=== PATIENT | male | born 2000 | race Caucasian/White ===

== ENCOUNTER 2023-04-20 07:30 | Outpatient (RCR) | payer OTHER, SELFPAY | END 2023-07-12 11:16 | disposition home or self-care (01) | PROVIDERS: PCP Family Medicine; Visit Provider Family Medicine | DX: M53.3 Sacrococcygeal disorders, not elsewhere classified (principal); G57.00 Lesion of sciatic nerve, unspecified lower limb; M51.26 Other intervertebral disc displacement, lumbar region; M62.89 Other specified disorders of muscle; M99.03 Segmental and somatic dysfunction of lumbar region; G64 Other disorders of peripheral nervous system; Z51.89 Encounter for other specified aftercare | CPT/HCPCS: 97012; 97110; 97140; 97161; 97164 ==

== ENCOUNTER 2023-05-08 07:02 | Outpatient (CLI) | payer OTHER, SELFPAY ==
--- NOTE | 2023-05-08 07:15 | MR_ITS ---
[facility] [address] [facility] [address] Phone:?[phone] Fax:?[phone] Referring Physician Information: Diane Queen M.D. [address] [facility] [address] Phone:?[phone] Fax:?[phone] Patient:?Saleem Martinez D.O.B:?2000 Sex:?Male Phone:?[phone] [facility] MRN:?[id number] Exam Date:?05/08/2023 EXAM:?MR LUMBAR SPINE WITHOUT CONTRAST CLINICAL INFORMATION: Pain rule out disc herniation. COMPARISON: 02/20/2023.?SEDATION:?None. TECHNICAL INFORMATION: Imaging was performed at [facility]. Sagittal and axial T1/ FSE T2, sagittal STIR and coronal T1 images were obtained through the lumbar spine. INTERPRETATION: S1-S2: Rudimentary disc space without stenosis or impingement. Findings consistent with mild left lumbarization of S1. L5-S1:?Moderate degeneration, a central to left paracentral caudally extruded disc herniation measures 9.5 mm AP and extrudes caudally for 7 mm. This indents the dural sac and encroaches upon the left S1 root. Mild central canal narrowing and patent foramina. Unremarkable facet joints. L4-5: Mild degeneration, a midline 5.8 mm disc herniation indents the dural sac without impingement or stenosis. Patent foramina and unremarkable facet joints. [id number]: Normal disc height and annular margins. No spinal stenosis or neural impingement. Osseous Structures: Fat suppressed images are negative for acute or subacute fractures. Paraspinous Soft Tissues: No mass lesions. Conus, Cord and Cauda Equina: Normal position conus and no evidence of intradural mass or arachnoiditis. CONCLUSION: 1. A moderate-sized caudally extruded central/left paracentral L5-S1 disc herniation indents the dural sac with mild left S1 root encroachment and central canal narrowing. 2. Central L4-5 disc herniation with dural sac indentation without stenosis or impingement. 3. Comparison to outside images from 02/20/2023 shows decreased mass effect upon the left S1 root with partial resorption of left posterolateral L5-S1 herniation but persistent central/left paracentral extrusion. No interval change at L4-5. Electronically signed on 05/09/2023 11:21:00 AM by Ramírez Monroe M.D.
== END 2023-05-08 07:03 | disposition home or self-care (01) ==
PROVIDERS: PCP Family Medicine; Visit Provider Student in an Organized Health Care Education/Training Program
DX: M51.26 Other intervertebral disc displacement, lumbar region (principal); M51.27 Other intervertebral disc displacement, lumbosacral region
CPT/HCPCS: 72148

== ENCOUNTER 2024-01-11 12:56 | Emergency (ER) | payer BC, SELFPAY ==
[2024-01-11 13:40] VITALS: BP 134/81; PULSE 98; RESP 18; TEMP 37; O2SAT 98; BMI 28.1
--- NOTE | 2024-01-11 14:19 | ED.ABDPAIN ---
HPI - Abdominal Pain General Time Seen by Provider: 14:19 Date Seen: 01/11/24 Chief Complaint: Abdominal Pain Stated Complaint: abdominal pain Time Seen by Provider: 01/11/24 14:14 Source: patient, RN notes reviewed and old records reviewed Mode of arrival: ambulatory Limitations: no limitations History of Present Illness HPI narrative: 23-year-old male who presents with abdominal pain which is been going on for a little over week. Pain is in the mid abdomen and became suddenly had comes in waves, generally achy. Did vomit at the beginning of this but has not vomited since, normal bowel movements, no urinary symptoms. Has not taken anything for this. Pain seems to be little bit worse when he eats breakfast and lunch but not as much when he eats dinner. Denies any injury, did have back surgery but no other surgeries. Related Data Home Medications ?Medication ?Instructions ?Recorded ?Confirmed gabapentin 300 mg capsule mg PO TID 01/09/24 01/09/24 methocarbamol 750 mg tablet 750 mg PO Q6H PRN 01/09/24 01/11/24 Allergies Allergy/AdvReac Type Severity Reaction Status Date / Time No Known Drug Allergies Allergy Verified 01/11/24 15:02 PFSH PFS Social History Smoking Status: Never smoker Do you use any of these nicotine containing products: None How often do you have a drink containing alcohol: monthly or less AUDIT-C Alcohol total score: 1 Non-prescribed substance use: denies use Exam Narrative: Exam Narrative: General: Well-developed and well-nourished, no acute distress Head: Atraumatic and normocephalic Eyes: Pupils are equal reactive, extraocular motions intact, conjunctiva clear ENT: External nose and ears are normal, posterior pharynx without erythema or exudate Neck: No midline cervical tenderness, full spontaneous range of motion the neck, trachea midline, no adenopathy Heart: Regular rate and rhythm no murmurs or thrills Lungs: Clear to auscultation bilaterally without wheezes or crackles Abdomen: Soft, nontender, nondistended with active bowel sounds Musculoskeletal: No tenderness, deformity, or edema Neurologic: Awake, alert, and oriented x3, no gross focal neurologic deficits, cranial nerves intact as tested Psych: Mood and affect are appropriate Skin: No rashes Const: Vital Signs, click to edit/add: Vital Signs - 24 hr 01/11/24 13:40 01/11/24 15:27 Temperature 98.6 F 97.5 F L Pulse Rate [Left P ulse Oximeter] 98 59 L Respiratory Rate 18 18 Blood Pressure [Le ft Upper Arm] 134/81 119/63 Pulse Oximetry 98 98 Oxygen Delivery Me thod Room Air Room Air Course Course ED Course: Patient seen examined, reviewed prior gym care visit from January 08 when patient was seen for this same complaint, that time normal CBC in what sounds like a fairly benign exam, felt to have mesenteric adenitis. Patient returns today with continued pain, described as aching and sometimes sharp. Patient is vitally stable on initial exam with minimal tenderness. Discussed possible etiology of patient's symptoms today, labs ordered along with CT scan of the abdomen pelvis although given exam, acute appendicitis, cholecystitis, pancreatitis unlikely. Reevaluation(s) Time of Reevaluation #1: 15:03 Reevaluation #1: Labs independently interpreted by me with normal CBC. CT scan of the abdomen pelvis independently interpreted by me does not demonstrate acute findings. Time of Reevaluation #2: 15:38 Reevaluation #2: Labs independently interpreted by me with normal patent panel other than slightly low alkaline phosphatase, lipase normal. No definite etiology for patient's abdominal pain found today. Stable for discharge with outpatient follow-up. Vital Signs Vital signs: Initial Vital Signs Temperature 98.6 F 01/11/24 13:40 Temperature Source Temporal Artery Scan 01/11/24 13:40 Pulse Rate 98 01/11/24 13:40 Pulse Rhythm Regular 01/11/24 13:40 Pulse Strength 3+ Normal 01/11/24 13:40 Respiratory Rate 18 01/11/24 13:40 Blood Pressure 134/81 01/11/24 13:40 Blood Pressure Mean 98 01/11/24 13:40 Blood Pressure Position Sitting 01/11/24 13:40 Pulse Oximetry 98 01/11/24 13:40 Oxygen Delivery Method Room Air 01/11/24 13:40 Vital Signs Temperature 98.6 F 01/11/24 13:40 Pulse Rate 98 01/11/24 13:40 Respiratory Rate 18 01/11/24 13:40 Blood Pressure 134/81 01/11/24 13:40 Pulse Oximetry 98 01/11/24 13:40 Oxygen Delivery Method Room Air 01/11/24 13:40 Temperature 97.5 F L 01/11/24 15:27 Pulse Rate 59 L 01/11/24 15:27 Respiratory Rate 18 01/11/24 15:27 Blood Pressure 119/63 01/11/24 15:27 Pulse Oximetry 98 01/11/24 15:27 Oxygen Delivery Method Room Air 01/11/24 15:27 MDM - Abdominal Pain Lab Data Labs: Lab Results 01/11/24 Range/Units 14:42 WBC 7.37 (4.50-11.00) K/uL RBC 5.17 (4.30-5.90) m/uL Hgb 15.8 (13.5-17.5) gm/dL Hct 45.2 (37.0-53.0) % MCV 87 (80-100) fL MCH 31 (26-34) pg MCHC 35 (32-36) gm/dL RDW Coeff of Jo 11.6 (11.5-15.5) % Plt Count 211 (140-440) K/uL Neut % (Auto) 45.7 (42.0-72.0) % Lymph % (Auto) 35.7 (20-44) % [place] % (Auto) 9.2 (0.0-11.0) % Eos % (Auto) 9.0 H (0.0-7.0) % Baso % (Auto) 0.3 (0.0-3.0) % Neut # (Auto) 3.37 (1.7-7.0) K/uL Lymph # (Auto) 2.63 (0.90-2.90) K/uL [place] # (Auto) 0.70 (0.00-0.90) K/UL Eos # (Auto) 0.70 H (0.00-0.50) K/uL Baso # (Auto) 0.02 (0.00-0.30) K/uL Abs Immat Gran (auto) 0.01 (0.00-0.30) K/uL Imm/Tot Granulo (auto) 0.1 % Sodium 138 (135-149) mmol/L Potassium 3.9 (3.6-5.1) mmol/L Chloride 97 (96-114) mmol/L Carbon Dioxide 30 (20-32) mmol/L Anion Gap 11 (7-15) mEq/L BUN 14 (5-24) mg/dL Creatinine 0.8 (0.5-1.5) mg/dL Estimated Creat Clear 146.06 Estimated GFR 129 ml/min Glucose 90 (60-115) mg/dL Calcium 9.6 (8.4-10.6) mg/dL Total Bilirubin 0.3 (0.1-1.5) mg/dL Direct Bilirubin 0.1 (0.0-0.5) mg/dL AST 24 (12-35) U/L ALT 26 (4-50) U/L Alkaline Phosphatase 39 L (40-150) U/L Total Protein 7.7 (6.0-8.3) g/dL Albumin 5.1 H (3.3-5.0) g/dL Lipase 52 (23-300) U/L Discharge Plan Discharge Clinical Impression: Abdominal pain, periumbilic Patient Disposition: Home, Self-Care Condition: Stable Instructions: Abdominal Pain (ED) Additional Instructions: No definite cause for your abdominal pain is found today. No evidence for pancreatitis, gallbladder problems, or appendicitis. Take Tylenol and ibuprofen as needed for pain, follow-up with primary care in 7-10 days for recheck. Activity Level: Activity as Tolerated Discharge Diet: Regular Prescriptions: No Action methocarbamol 750 mg tablet 750 mg PO Q6H PRN gabapentin 300 mg capsule PO TID Follow Up/Referrals: Sherry Myers MD [Staff Physician] - Stand Alone Forms: [employer] Info Instructions
--- NOTE | 2024-01-11 14:32 | CRLHL7_ITS ---
For Patients: As a result of the Century Cures Act, medical imaging exams and procedure reports are released immediately into your electronic medical record. You may view this report before your referring provider. If you have questions, please contact your health care provider. INDICATION: Periumbilical abdominal pain COMPARISON: None. TECHNIQUE: CT of the abdomen and pelvis with intravenous contrast (93 milliliters Isovue 370). FINDINGS: Lung bases: No pleural effusion. Liver: Smooth hepatic contour. No suspicious hepatic lesions are identified. Gallbladder and biliary tree: Unremarkable CT appearance. Spleen: No splenomegaly. Pancreas: Normal. Adrenal glands: Normal. Kidneys and ureters: No hydroureteronephrosis. No suspicious renal lesions are identified. Bladder: Unremarkable CT appearance. Visualized reproductive organs: Unremarkable CT appearance. Gastrointestinal tract: No focal abnormally dilated loops of bowel. Peritoneal cavity: No free fluid or free air. Lymph nodes: No enlarged abdominal or pelvic lymph nodes by CT size criteria. Vessels: No abdominal aortic aneurysm. Circumaortic left renal vein. Abdominal and pelvic wall: Tiny fat containing umbilical hernia. Bones: Transitional lumbosacral anatomy with 5 lumbar vertebra and a partially lumbarized S1. No acute osseous findings. IMPRESSION: No acute findings in the abdomen or pelvis. Please note that all CT scans at this facility use dose modulation, iterative reconstruction, and/or weight-based dosing when appropriate to reduce radiation dose to as low as reasonably achievable. Dictated by Thai Burroughs MD @ 01/11/2024 3:22:53 PM (Electronically Signed)
[2024-01-11 14:51] LABS: Basophils Absolute Auto 0.02 K/uL (0.00-0.30); Basophils Percent Auto 0.3 % (0.0-3.0); Hematocrit 45.2 % (37.0-53.0); Hemoglobin* 15.8 gm/dL (13.5-17.5); Immature Granulocytes Abs Auto 0.01 K/uL (0.00-0.30); Immature Granulocytes Pct Auto 0.1 %; Lymphocytes Absolute Auto 2.63 K/uL (0.90-2.90); Lymphocytes Percent Auto 35.7 % (20-44); Mean Corpuscular HGB Conc 35 gm/dL (32-36); Mean Corpuscular Hemoglobin 31 pg (26-34); Mean Corpuscular Volume 87 fL (80-100); Monocytes Percent Auto 9.2 % (0.0-11.0); Neutrophils Absolute Auto 3.37 K/uL (1.7-7.0); Neutrophils Percent Auto 45.7 % (42.0-72.0); Platelet Count* 211 K/uL (140-440); RDW Coefficient of Variation % 11.6 % (11.5-15.5); Red Blood Count 5.17 m/uL (4.30-5.90); White Blood Count* 7.37 K/uL (4.50-11.00)
[2024-01-11 14:53] LABS: Slide Review Reflex No
[2024-01-11 15:04] LABS: Albumin* 5.1 g/dL (3.3-5.0); Chloride* 97 mmol/L (96-114)
[2024-01-11 15:05] LABS: Potassium* 3.9 mmol/L (3.6-5.1); Sodium* 138 mmol/L (135-149)
[2024-01-11 15:07] LABS: Anion Gap 11 mEq/L (7-15); Aspartate Amino Transferase* 24 U/L (12-35); Bilirubin Direct* 0.1 mg/dL (0.0-0.5); Bilirubin Total* 0.3 mg/dL (0.1-1.5); Blood Urea Nitrogen* 14 mg/dL (5-24); Carbon Dioxide* 30 mmol/L (20-32); Creatinine* 0.8 mg/dL (0.5-1.5); Est. Creatinine Clearance* 146.06; Estimated Glomerular Filt Rate 129 ml/min; Total Protein* 7.7 g/dL (6.0-8.3)
[2024-01-11 15:08] LABS: Alanine Aminotransferase* 26 U/L (4-50); Alkaline Phosphatase* 39 U/L (40-150); Calcium* 9.6 mg/dL (8.4-10.6); Glucose* 90 mg/dL (60-115); Lipase* 52 U/L (23-300)
[2024-01-11 15:27] VITALS: BP 119/63; PULSE 59; RESP 18; TEMP 36.4; O2SAT 98
== END 2024-01-11 15:50 | disposition home or self-care (01) ==
PROVIDERS: Emergency Provider Family Medicine
DX: R10.9 Unspecified abdominal pain (principal)
CPT/HCPCS: 36415; 74177; 80048; 80076; 83690; 85025; 99284; 99285; Q9967